=== PATIENT | male | born 2000 | race Caucasian/White ===

== ENCOUNTER 2022-10-05 14:41 | Emergency (ER) | payer OTHER ==
--- NOTE | 2022-10-05 14:44 | ERPHSYRPT ---
- History of Present Illness Time Seen by Provider: 10/05/22 14:44 Source: patient Exam Limitations: no limitations Physician History: This is a 21-year-old white male patient who yesterday got out of his truck landed on his left foot and rolled the left foot and ankle. There is significant swelling and bruising. There is also tenderness present on the lateral aspect. Patient's truck is very high off the ground. He did not hear a snap or a pop sensation. Method of Injury: twisted (Rolled) Occurred: yesterday Quality: aching Severity of Pain-Max: mild (To moderate) Severity of Pain-Current: mild (To moderate) Lower Extremities Pain: foot: left (Lateral aspect), ankle: left (Lateral aspect) Modifying Factors: Improves With: movement Associated Symptoms: other (Hurts to bear weight but can do so.), No snapping sensation, No popping sensation Allergies/Adverse Reactions: No Known Drug Allergies Allergy (Verified 10/05/22 15:00) Home Medications: Sulfamethoxazole/Trimethoprim [Sulfamethoxazole-Tmp Ds Tablet] 1 tab PO BID 10/05/22 [History] Travel Risk - International Travel Have you traveled outside of the country in past 3 weeks: No - Coronavirus Screening Are you exhibiting any of the following symptoms?: No Close contact with a COVID-19 positive Pt in past 14-21 Days: No - Review of Systems Constitutional: No Symptoms Eyes: No Symptoms Ears, Nose, & Throat: No Symptoms Respiratory: No Symptoms Cardiac: No Symptoms Abdominal/Gastrointestinal: No Symptoms Genitourinary Symptoms: No Symptoms Musculoskeletal: Injury (Left foot and ankle) Skin: No Symptoms Neurological: No Symptoms Psychological: No Symptoms Endocrine: No Symptoms Hematologic/Lymphatic: No Symptoms Immunological/Allergic: No Symptoms All Other Systems: Reviewed and Negative - Past Medical History Pertinent Past Medical History: No - Past Surgical History Past Surgical History: No - Nursing Vital Signs Nursing Vital Signs: Initial Vital Signs Temperature 97.7 F 10/05/22 14:42 Pulse Rate 74 10/05/22 14:42 Respiratory Rate 18 10/05/22 14:42 Blood Pressure 158/77 10/05/22 14:42 O2 Sat by Pulse Oximetry 98 10/05/22 14:42 Pain Scale Pain Intensity 7 - Physical Exam General Appearance: no apparent distress, alert Eyes, Ears, Nose, Throat Exam: normal ENT inspection, moist mucous membranes Neck Exam: normal inspection, non-tender, supple, full range of motion Cardiovascular/Respiratory Exam: chest non-tender, no respiratory distress Gastrointestinal/Abdominal Exam: non-tender Back Exam: normal inspection, normal range of motion, No CVA tenderness, No vertebral tenderness Hips Exam: bilateral: non-tender, normal inspection, normal range of motion, no evidence of injury Legs Exam: bilateral leg: non-tender, normal inspection, normal range of motion, no evidence of injury Knees Exam: bilateral knee: non-tender, normal inspection, normal range of motion, no evidence of injury Ankle Exam: right ankle: non-tender, normal inspection, normal range of motion, no evidence of injury, left ankle: bone tenderness, ecchymosis, soft tissue tenderness, swelling Foot Exam: right foot: non-tender, normal inspection, normal range of motion, no evidence of injury, left foot: bone tenderness, ecchymosis, soft tissue tenderness, swelling Neuro/Tendon Exam: normal sensation, normal motor functions, normal tendon functions, responds to pain, no evidence tendon injury Mental Status Exam: alert, oriented x 3, cooperative Skin Exam: normal color, warm, dry SpO2 Interpretation: normal O2 Delivery: Room Air - Course Nursing assessment & vital signs reviewed: Yes Ordered Tests: Active Orders 24 hr Category Date Time Status ANKLE (3 VIEWS) Stat Exams 10/05/22 15:21 Taken FOOT (MINIMUM 3 VIEWS) Stat Exams 10/05/22 15:21 Taken - Progress Progress: unchanged, pain not gone completely, re-examined Progress Note: 10/05/22 16:41 This patient's medical issue is 1 of low complexity. Level complexity in the work-up performed is based on review of the patient's past medical history, review of the patient's medication list, review the patient's drug allergy list, history of present illness and physical findings on examination. The work-up in this patient includes x-ray of the left foot and ankle. X-ray of the left foot was interpreted by me. There is no evidence of any acute fracture or dislocation. X-ray of the left ankle was interpreted by me. There is no evidence of any acute fracture or dislocation. Counseled pt/family regarding: diagnosis, need for follow-up, rad results Medical Desision Making - Independent Historian Additional History obtained from: Mother - Diagnostic Testing Diagnostic test were ordered, analyzed, and reviewed by me: Yes Radiological Interpretation: Interpreted by me - Risk of complications Minimal Risk: Minimal risk of morbidity - Departure Departure Disposition: Home Clinical Impression: Left ankle sprain, Sprain of left foot Condition: Stable Critical Care Time: No Additional Instructions: Ice pack to left foot and ankle tender swollen bruised area 3 times a day for the next 48 hours. Follow-up with Dr. Pan, podiatry, or [facility] orthopedic clinic Wednesday through Wednesday 8 AM to 10 AM walk-in clinic for further evaluation and management of persistent symptoms. Use Tylenol and ibuprofen for pain control. Wear the Zach wrap for pain control. Elevate left lower extremity above the level heart when not up and ambulating.
[2022-10-05 15:13] VITALS: BP 158/77; PULSE 74; RESP 18; TEMP 97.7; O2SAT 98
--- NOTE | 2022-10-05 16:55 | XRAY ---
CLINICAL HISTORY:Twisted, rolled COMPARISON:None. TECHNIQUE:X-ray of the left foot AP, Lateral and oblique views. FINDINGS: No fracture could be detected. A radiological examination of the foot demonstrates no lytic or sclerotic bone lesion. The cortical margins of the osseous structures are within normal limits. Normal metatarsophalangeal and interphalangeal joint spaces. Articular margins are intact. No focal abnormality was seen in the great toe. No plantar calcaneal spure noted. IMPRESSION: Unremarkable study. DISCLAIMER:A subtle bone abnormality or fracture may not be readily apparent on x-rays, thus clinical correlation and further imaging including follow-up CT, MRI, or follow-up x-rays are advised as needed Electronically Signed by: Nancy Hwang MD. (10/05/2022 15:54:06 SKIP LOADER)
--- NOTE | 2022-10-05 16:57 | XRAY ---
CLINICAL HISTORY:Twisted, rolled COMPARISON:None. TECHNIQUE:X-ray of the left ankle AP, lateral and oblique views FINDINGS: Average bone density. No fracture or bony abnormality was seen. Ankle joint space is preserved. Soft tissue is seen as normal. IMPRESSION: Unremarkable study. DISCLAIMER:A subtle bone abnormality or fracture may not be readily apparent on x-rays, thus clinical correlation and further imaging including follow-up CT, MRI, or follow-up x-rays are advised as needed. Electronically Signed by: Nancy Hwang MD. (10/05/2022 15:56:44 PLATFORM ENGINEER)
== END 2022-10-05 16:56 | disposition home or self-care (01) ==
LOC: ED 14:41
DX: S93.402A Sprain of unspecified ligament of left ankle, initial encounter (principal); S93.602A Unspecified sprain of left foot, initial encounter; X50.0XXA Overexertion from strenuous movement or load, initial encounter; Z79.899 Other long term (current) drug therapy
CPT/HCPCS: 73610; 73630; 99283